=== PATIENT | female | born 1950 | race Hispanic/Latino ===

== ENCOUNTER → 2022-11-07 | Outpatient (CLI) | payer MEDICARE | END | disposition home or self-care (01) | LOC: SHCH 09:44 | PROVIDERS: ATTEND Internal Medicine Cardiovascular Disease | DX: I87.2 Venous insufficiency (chronic) (peripheral) (principal); I11.9 Hypertensive heart disease without heart failure; I20.9 Angina pectoris, unspecified; E11.9 Type 2 diabetes mellitus without complications; R06.09 Other forms of dyspnea | CPT/HCPCS: 93306; 93970 ==

== ENCOUNTER → 2022-11-09 | Outpatient (CLI) | payer MEDICARE ==
[~2022-11-09] MED LIST: REGADENOSON 0.4 MG/5 ML PF SYG IVP ONE
== END | disposition home or self-care (01) ==
LOC: SHCH 08:00
PROVIDERS: ATTEND Internal Medicine Cardiovascular Disease
DX: R94.39 Abnormal result of other cardiovascular function study (principal); R94.31 Abnormal electrocardiogram [ECG] [EKG]; R07.9 Chest pain, unspecified; I25.9 Chronic ischemic heart disease, unspecified
CPT/HCPCS: 78452; 96374; 93017; J2785; A9500 ×2

== ENCOUNTER 2023-01-01 05:51 | Day surgery (SDC) | payer MEDICARE ==
[2022-12-28 12:39] LABS: BASOPHILS # (AUTO) 0.03 K/uL (0.00-0.20); BASOPHILS % (AUTO) 0.5 % (0.0-5.0); EOSINOPHILS # (AUTO) 0.18 K/uL (0.00-0.70); HEMATOCRIT 39.3 % (36-48); IMMATURE GRANULOCYTE ABSOLUTE 0.02 K/uL (0-1); LYMPHOCYTES # (AUTO) 1.8 K/uL (1.0-4.8); LYMPHOCYTES % (AUTO) 30.7 % (21.0-51.0); MEAN CORPUSCULAR HEMOGLOBIN 31.5 pg (27.0-33.0); MEAN CORPUSCULAR HGB CONC 31.6 g/dL (32.0-36.0); MEAN CORPUSCULAR VOLUME 99.7 fL (79-99); MONOCYTES # (AUTO) 0.7 K/uL (0.1-1.0); NEUTROPHILS # (AUTO) 3.3 K/uL (1.8-7.7); NEUTROPHILS % (AUTO) 54.5 % (40.0-77.0); PLATELET COUNT (AUTO) 195 K/uL (130-400); RED BLOOD CELL COUNT(AUTO) 3.94 MIL/uL (4.00-5.50); RED CELL DISTRIBUTION WIDTH 12.7 % (11.0-15.5)
[2022-12-28 12:50] VITALS: BP 139/64; PULSE 66; RESP 20
[2022-12-28 12:50] LABS: CREATININE 0.7 mg/dL (0.5-1.5); POTASSIUM 5.1 mmol/L (3.5-5.1)
[2022-12-28 12:52] LABS: INR < 0.93 (0.85-1.15); PROTHROMBIN TIME 10.8 SEC (9.6-11.6)
[2022-12-28 12:54] LABS: PARTIAL THROMBOPLASTIN TIME 27.2 SEC (26.3-35.5)
[2023-01-01] VITALS (12 sets, daily range): BP systolic 121–179; BP diastolic 62–83; PULSE 54–78; RESP 11–21
[~2023-01-01] VITALS: Ht 154.9 cm; Wt 105.0 kg
[2023-01-01] MEDS ORDERED: 0.9%NACL 1000ML 1,000 ML IV ONE (06:22)
[2023-01-01] MEDS ORDERED: ASCO500C18 PO (07:05)
[2023-01-01] MEDS ORDERED: OMEP40CA21 PO (07:05)
[2023-01-01] MEDS ORDERED: ISOS30TA92 PO ×2 (07:05)
[2023-01-01] MEDS ORDERED: SOLI10TA7 PO (07:05)
[2023-01-01] MEDS ORDERED: METO-408 PO (07:05)
[2023-01-01] MEDS ORDERED: CYAN250010 PO (07:05)
[2023-01-01] MEDS ORDERED: FOLI-114 PO (07:05)
[2023-01-01] MEDS ORDERED: MILK175T PO (07:05)
[2023-01-01] MEDS ORDERED: LOSA25TA41 PO (07:05)
[2023-01-01] MEDS ORDERED: BIVALIRUDIN 250 MG/VIAL IV ONE (07:22)
[2023-01-01] MEDS ORDERED: LIDOCAINE HCL 400MG/20ML VIAL ONE (07:22)
[2023-01-01] MEDS ORDERED: HEPARIN 10,000 UNIT/10ML (1,000 UNIT/ML) VIAL ONE (07:23)
[2023-01-01] MEDS ORDERED: NITROGLYCERIN 50MG/D5W 250ML 1 BOT ONE (07:23)
[2023-01-01] MEDS ORDERED: FENTANYL CITRATE PF 50 MCG/1 ML 2ML VIAL ONE (07:23)
[2023-01-01] MEDS ORDERED: MIDAZOLAM HCL 1 MG/ML 2ML VIAL ONE (07:23)
[2023-01-01] MEDS ORDERED: IOHEXOL 350 MG/ML 100ML INFUS..BTL IV ONE (07:28)
[2023-01-01] MEDS ORDERED: GLUCAGON 1MG KIT 1 MG ML IM PRN (08:00)
[2023-01-01] MEDS ORDERED: 0.9%NACL 1000ML 1,000 ML IV SCH (08:00)
[2023-01-01] MEDS ORDERED: DEXTROSE 50%-WATER 50 ML DISP.SYRIN IV PRN (08:00)
== END 2023-01-01 14:00 | disposition home or self-care (01) ==
LOC: DAH 05:51
PROVIDERS: ATTEND Internal Medicine Cardiovascular Disease
DX: I25.110 Atherosclerotic heart disease of native coronary artery with unstable angina pectoris (principal); I11.0 Hypertensive heart disease with heart failure; I50.32 Chronic diastolic (congestive) heart failure; R94.31 Abnormal electrocardiogram [ECG] [EKG]; I49.1 Atrial premature depolarization; E11.9 Type 2 diabetes mellitus without complications; K21.9 Gastro-esophageal reflux disease without esophagitis; E66.01 Morbid (severe) obesity due to excess calories; I87.2 Venous insufficiency (chronic) (peripheral); M19.90 Unspecified osteoarthritis, unspecified site; Z98.891 History of uterine scar from previous surgery; Z82.49 Family history of ischemic heart disease and other diseases of the circulatory system; Z68.41 Body mass index [BMI] 40.0-44.9, adult; Z98.890 Other specified postprocedural states; Z88.8 Allergy status to other drugs, medicaments and biological substances; Z79.01 Long term (current) use of anticoagulants; Z79.899 Other long term (current) drug therapy
CPT/HCPCS: 80048; 85025; 85610; 85730; 36415; 71045; 93005; 93458; 82948; C1894 ×2; C1760; J3010; J3490 ×2; J7030; J2250; J1644; Q9967; A4215; A4222; A4221; A4663; A4216; A4606; Q9965; A4223 ×3; 99156; 99157; J0583

== ENCOUNTER 2023-05-20 07:46 | Day surgery (SDC) | payer MEDICARE ==
[2023-05-16 10:12] LABS: BASOPHILS # (AUTO) 0.03 K/uL (0.00-0.20); BASOPHILS % (AUTO) 0.6 % (0.0-5.0); EOSINOPHILS # (AUTO) 0.13 K/uL (0.00-0.70); EOSINOPHILS % (AUTO) 2.7 % (0.0-8.0); IMMATURE GRANULOCYTE ABSOLUTE 0.01 K/uL (0-1); LYMPHOCYTES # (AUTO) 1.6 K/uL (1.0-4.8); LYMPHOCYTES % (AUTO) 33.5 % (21.0-51.0); MEAN CORPUSCULAR HEMOGLOBIN 31.7 pg (27.0-33.0); MEAN CORPUSCULAR HGB CONC 32.1 g/dL (32.0-36.0); MEAN CORPUSCULAR VOLUME 98.6 fL (79-99); MONOCYTES # (AUTO) 0.5 K/uL (0.1-1.0); MONOCYTES % (AUTO) 9.6 % (3.0-13.0); NEUTROPHILS # (AUTO) 2.5 K/uL (1.8-7.7); NEUTROPHILS % (AUTO) 53.4 % (40.0-77.0); PLATELET COUNT (AUTO) 212 K/uL (130-400); RED BLOOD CELL COUNT(AUTO) 4.36 MIL/uL (4.00-5.50); RED CELL DISTRIBUTION WIDTH 12.6 % (11.0-15.5); WHITE BLOOD COUNT (AUTO) 4.8 K/uL (4.8-10.8)
[2023-05-16 10:14] VITALS: BP 126/68; PULSE 55; RESP 16
[2023-05-16 10:19] LABS: APPEARANCE,URINE CLEAR (CLEAR); BILIRUBIN,URINE NEGATIVE (NEGATIVE); COLOR,URINE LIGHT-YELLOW (YELLOW); GLUCOSE, URINE (UA) NEGATIVE (NEGATIVE); KETONES,URINE NEGATIVE (NEGATIVE); LEUKOCYTE ESTERASE ,URINE 250 Leu/uL (NEGATIVE); NITRATE,URINE NEGATIVE (NEGATIVE); OCCULT BLOOD,URINE NEGATIVE (NEGATIVE); PROTEIN,URINE NEGATIVE (NEGATIVE); UROBILINOGEN,URINE 0.2 mg/dL (0.2-1.0)
[2023-05-16 10:25] LABS: ALBUMIN 3.5 g/dL (3.5-5.0); BILIRUBIN,TOTAL 0.6 mg/dL (0.2-1.0); CREATININE 0.7 mg/dL (0.5-1.5); POTASSIUM 4.7 mmol/L (3.5-5.1); TOTAL PROTEIN, SERUM 7.3 g/dL (6.0-8.3)
[2023-05-16 10:33] LABS: INR 0.94 (0.85-1.15)
[2023-05-16 10:34] LABS: PARTIAL THROMBOPLASTIN TIME 29.5 SEC (26.3-35.5)
[2023-05-16 10:39] LABS: ADD UA MICROSCOPIC YES
[2023-05-16 10:44] LABS: BACTERIA,URINE RARE /HPF (None Seen); MUCUS,URINE RARE LPF (None Seen); SQUAMOUS EPITHELIAL CELL,UR RARE /HPF (0-2)
[~2023-05-20] VITALS: Ht 157.5 cm; Wt 98.3 kg
[2023-05-20] VITALS (20 sets, daily range): BP systolic 98–146; BP diastolic 45–73; PULSE 52–70; RESP 9–18
[~2023-05-20 07:46] MED LIST changes: +LOSA25TA41 PO; -REGADENOSON 0.4 MG/5 ML PF SYG IVP ONE
[2023-05-20] MEDS ORDERED: CEFAZOLIN SODIUM 2 GM VIAL ONE (07:50)
[2023-05-20] MEDS ORDERED: INDOCYANINE GREEN 25 MG VIAL IJ ONE (08:19)
[2023-05-20] MEDS: LACTATED RINGERS 1000ML 1,000 ML IV ONE (08:39)
[2023-05-20] MEDS ORDERED: DEXAMETHASONE SOD PHOSPHATE 10MG/ML 1ML VIAL ONE (10:02)
[2023-05-20] MEDS ORDERED: NEOSTIGMINE METHYLSULFATE 1MG/ML IV ONE (10:02)
[2023-05-20] MEDS ORDERED: LIDOCAINE PF 100MG/5ML (2%) SYRINGE 5ML ONE (10:02)
[2023-05-20] MEDS ORDERED: MIDAZOLAM HCL 1 MG/ML 2ML VIAL ONE (10:02)
[2023-05-20] MEDS ORDERED: GLYCOPYRROLATE 0.2 MG/ML 5 ML VIAL ONE (10:02)
[2023-05-20] MEDS ORDERED: ONDANSETRON 4MG INJ ONE (10:02)
[2023-05-20] MEDS ORDERED: PROPOFOL 10 MG/ML 20ML VIAL IV ONE (10:02)
[2023-05-20] MEDS ORDERED: SUCCINYLCHOLINE CHLORIDE 20 MG/ML 10 ML VIAL ONE (10:02)
[2023-05-20] MEDS ORDERED: ROCURONIUM BROMIDE 10MG/1ML 5ML VL ONE (10:03)
[2023-05-20] MEDS ORDERED: FENTANYL CITRATE PF 50 MCG/1 ML 2ML VIAL ONE (10:03)
[2023-05-20] MEDS: CEFAZOLIN SODIUM 2 GM VIAL IVPB ONE (10:21)
[2023-05-20] MEDS ORDERED: BUPIVACAINE/PF 0.5% 30ML VIAL ONE ×2 (10:28→10:31)
[2023-05-20] MEDS: BUPIVACAINE/PF 0.5% 30ML VIAL INJ ONE (10:55)
[2023-05-20] MEDS: FENTANYL CITRATE PF 50 MCG/1 ML 2ML VIAL ONE (12:41)
[2023-05-20] MEDS ORDERED: TRAM50TA4 PO (13:39)
[2023-05-20] MEDS ORDERED: IBUP-2071 PO (13:39)
[2023-05-20] MEDS ORDERED: SIME80TA12 PO (13:39)
== END 2023-05-20 14:21 | disposition home or self-care (01) ==
LOC: DAH 07:46
PROVIDERS: ATTEND Student in an Organized Health Care Education/Training Program
DX: K80.10 Calculus of gallbladder with chronic cholecystitis without obstruction (principal); K85.90 Acute pancreatitis without necrosis or infection, unspecified; K82.8 Other specified diseases of gallbladder; I49.1 Atrial premature depolarization; I10 Essential (primary) hypertension; E66.01 Morbid (severe) obesity due to excess calories; Z98.891 History of uterine scar from previous surgery; Z88.6 Allergy status to analgesic agent; Z88.8 Allergy status to other drugs, medicaments and biological substances; Z68.41 Body mass index [BMI] 40.0-44.9, adult; Z79.01 Long term (current) use of anticoagulants; Z79.899 Other long term (current) drug therapy; Z98.890 Other specified postprocedural states
CPT/HCPCS: 80053; 85025; 85610; 85730; 87088; 81001; 36415; 93005; 47562; 88304; A6260; A4663; J7030; J7120; J3010 ×2; J1100; J0330; J3490 ×2; J2001; J2250; J2704; J2405; J2710; J0665 ×3; J0690 ×2; C1769; A4649; A4930 ×2; A4215; A4223; A4213; A4222; A4221; A4600; G0168

== ENCOUNTER → 2023-09-23 | Outpatient (CLI) | payer MEDICARE ==
[~2023-09-23] MED LIST changes: +IBUP-2071 PO; +SIME80TA12 PO; +TRAM50TA4 PO
[2023-09-23 10:55] LABS: BASOPHILS # (AUTO) 0.05 K/uL (0.00-0.20); BASOPHILS % (AUTO) 0.8 % (0.0-5.0); EOSINOPHILS # (AUTO) 0.25 K/uL (0.00-0.70); EOSINOPHILS % (AUTO) 3.9 % (0.0-8.0); HEMATOCRIT 39.1 % (36-48); IMMATURE GRANULOCYTE ABSOLUTE 0.03 K/uL (0-1); LYMPHOCYTES # (AUTO) 1.8 K/uL (1.0-4.8); LYMPHOCYTES % (AUTO) 28.2 % (21.0-51.0); MONOCYTES # (AUTO) 0.6 K/uL (0.1-1.0); NEUTROPHILS # (AUTO) 3.6 K/uL (1.8-7.7); NEUTROPHILS % (AUTO) 56.6 % (40.0-77.0); PLATELET COUNT (AUTO) 215 K/uL (130-400); RED BLOOD CELL COUNT(AUTO) 3.91 MIL/uL (4.00-5.50); RED CELL DISTRIBUTION WIDTH 12.7 % (11.0-15.5); WHITE BLOOD COUNT (AUTO) 6.4 K/uL (4.8-10.8)
[2023-09-23 11:16] LABS: ALBUMIN 3.3 g/dL (3.5-5.0); BILIRUBIN,TOTAL 0.5 mg/dL (0.2-1.0); CREATININE 0.7 mg/dL (0.5-1.0); POTASSIUM 4.9 mmol/L (3.5-5.1); TOTAL PROTEIN, SERUM 6.9 g/dL (6.0-8.3)
== END | disposition home or self-care (01) ==
LOC: LAB 10:14
PROVIDERS: ATTEND Internal Medicine Gastroenterology
DX: R93.2 Abnormal findings on diagnostic imaging of liver and biliary tract (principal)
CPT/HCPCS: 36415; 80053; 82150; 83690; 85025

== ENCOUNTER → 2023-11-04 | Outpatient (CLI) | payer MEDICARE ==
[2023-11-04 15:47] LABS: BASOPHILS # (AUTO) 0.04 K/uL (0.00-0.20); BASOPHILS % (AUTO) 0.5 % (0.0-5.0); EOSINOPHILS # (AUTO) 0.19 K/uL (0.00-0.70); EOSINOPHILS % (AUTO) 2.4 % (0.0-8.0); HEMATOCRIT 37.8 % (36-48); IMMATURE GRANULOCYTE ABSOLUTE 0.03 K/uL (0-1); LYMPHOCYTES # (AUTO) 2.6 K/uL (1.0-4.8); LYMPHOCYTES % (AUTO) 32.4 % (21.0-51.0); MEAN CORPUSCULAR HEMOGLOBIN 31.9 pg (27.0-33.0); MEAN CORPUSCULAR HGB CONC 32.3 g/dL (32.0-36.0); MEAN CORPUSCULAR VOLUME 98.7 fL (79-99); MONOCYTES # (AUTO) 0.8 K/uL (0.1-1.0); MONOCYTES % (AUTO) 10.2 % (3.0-13.0); NEUTROPHILS # (AUTO) 4.3 K/uL (1.8-7.7); NEUTROPHILS % (AUTO) 54.1 % (40.0-77.0); PLATELET COUNT (AUTO) 210 K/uL (130-400); RED BLOOD CELL COUNT(AUTO) 3.83 MIL/uL (4.00-5.50); RED CELL DISTRIBUTION WIDTH 12.5 % (11.0-15.5)
[2023-11-04 16:01] LABS: ALBUMIN 3.3 g/dL (3.5-5.0); BILIRUBIN,TOTAL 0.3 mg/dL (0.2-1.0); CREATININE 0.8 mg/dL (0.5-1.0); POTASSIUM 4.5 mmol/L (3.5-5.1)
== END | disposition home or self-care (01) ==
LOC: LAB 07:10
PROVIDERS: ATTEND Internal Medicine Gastroenterology
DX: R93.2 Abnormal findings on diagnostic imaging of liver and biliary tract (principal)
CPT/HCPCS: 36415; 80053; 82150; 83690; 85025

== ENCOUNTER → 2023-11-06 | Outpatient (CLI) | payer MEDICARE ==
[~2023-11-06] MED LIST changes: +GADOTERATE MEGLUMINE 10 MMOL/20 ML VIAL IV ONE
== END | disposition home or self-care (01) ==
LOC: RAH 07:48
PROVIDERS: ATTEND Internal Medicine Gastroenterology
DX: R93.2 Abnormal findings on diagnostic imaging of liver and biliary tract (principal); Z90.49 Acquired absence of other specified parts of digestive tract
CPT/HCPCS: 74183; A9575